=== PATIENT | female | born 1950 | race Caucasian/White ===

== ENCOUNTER 2017-03-03 15:49 | Emergency (ER) | payer BC, OTHER ==
[2017-03-03] MEDS ORDERED: Ondansetron INJ* 2 MG/ML VIAL IV ONE (17:55)
[2017-03-03] MEDS ORDERED: HYDROmorphone* 1 MG/ML 1 ML SYR IV ONE ×2 (17:55→21:38)
--- NOTE | 2017-03-03 19:12 | RAD ---
Indication: LEFT ankle deformity post fall. Comparison: None. Technique: Oblique AP and lateral lateral views LEFT ankle. Report: Talocrural dislocation with the talus displaced anterior and lateral relative to the tibial plafond. Fracture of the lateral malleolus at the level of the distal tibia fibula syndesmosis with apex medial angulation and impaction. Avulsion fracture at the medial malleolus. Talocrural joint effusion and severe soft tissue swelling about the visualized lower leg and ankle. IMPRESSION: Ankle fracture dislocation as described.
[2017-03-03] MEDS ORDERED: LORazepam INJ* 2 MG/ML 1 ML VIAL IV ONE (19:40)
[2017-03-03 22:16] VITALS: BP 107/59
--- NOTE | 2017-03-03 22:30 | RAD ---
Indication: Post reduction fracture dislocation. Comparison: Prereduction exam of the same date. Technique: AP and mortise views of the LEFT ankle. No lateral view obtained. Report: Improved alignment at the ankle mortise in the AP projection post reduction. Up to 1 cm lateral displacement of the medial malleolus fragment and the dome of the talus relative to the tibial plafond and. Similar lateral displacement at the oblique fracture at the distal metaphysis of the fibula terminating inferiorly at the level of the ankle mortise. Surrounding soft tissue swelling. IMPRESSION: Full assessment of talocrural joint alignment requires a lateral view. Zhu type B2 fracture pattern.
--- NOTE | 2017-03-03 22:45 | ED ---
Progress - Progress Note Progress Note: Pt w/ Lt ankle anterior dislocation w/ distal fibular fx and medial malleolar avulsion fx Edema and ecchymosis about the ankle joint Pre-reduction NV intact Reduced w/ dilaudid and ativan on board - pt tolerated well Post preduction NV intact Film shows improved positioning Posterior leg splint + stirrup splint applied Post splint NV intact Pt reports improvement of pain in splint Course/Dx - Diagnoses Provider Diagnoses: Avulsion fracture of medial malleolus of left tibia, Dislocation of left ankle joint, Closed left fibular fracture
[2017-03-03] MEDS ORDERED: HYDROcodone/ACETAMIN 5-325 MG* 1 TAB PO ONE (23:00)
--- NOTE | 2017-03-06 13:55 | ED ---
Anselmo Paz Benjamin, scribed for Deacon Ly MD on 03/03/17 at 1800 . Lower Extremity - HPI Summary HPI Summary: 67yo female presents with a left ankle injury from a mechanical fall around 1450 today. Pt twisted her left ankle upon falling. There is an obvious deformity on her left ankle. Pt has asthma, but no other medical problems. - History of Current Complaint Chief Complaint: EDExtremityLower Stated Complaint: FALL/ANKLE INJURY Time Seen by Provider: 03/03/17 17:09 Hx Obtained From: Patient, Family/Gis Application Developer Mechanism Of Injury: Fall From A Standing Position, Twisted Onset of Pain: Immediate, Post Accident Onset/Duration: Hours Severity Initially: Moderate Severity Currently: Moderate Pain Intensity: 6 Pain Scale Used: 0-10 Numeric Timing: Constant Location: Is Discrete @ - left ankle Character Of Pain: Throbbing Associated Signs And Symptoms: Positive: Negative Aggravating Factor(s): Standing, Ambulation, Movement, Weight Bearing Alleviating Factor(s): Elevation Able to Bear Weight: No - Allergies/Home Medications Allergies/Adverse Reactions: Allergies Allergy/AdvReac Type Severity Reaction Status Date / Time Penicillins Allergy Intermediate Rash Verified 11/22/13 18:59 PMH/Surg Hx/FS Hx/Imm Hx Endocrine/Hematology History: Denies: Hx Diabetes Cardiovascular History: Reports: Hx Hypercholesterolemia Denies: Hx Hypertension Respiratory History: Reports: Hx Asthma GI History: Reports: Other GI Disorders - Occasional acid reflux History: Denies: Hx Renal Disease Musculoskeletal History: Denies: Hx Rheumatoid Arthritis, Hx Osteoporosis - Cancer History Cancer Type, Location and Year: 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, 2x Hx Chemotherapy: No Hx Radiation Therapy: No - Surgical History Surgery Procedure, Year, and Place: Appendectomy 1975 Infectious Disease History: No Infectious Disease History: Denies: Traveled Outside the [place] in Last 30 Days - Family History Known Family History: Negative: Cardiac Disease, Hypertension - Social History Occupation: Employed Full-time Lives: With Family Alcohol Use: Weekly Substance Use Type: Reports: None Smoking Status (MU): Never Smoked Tobacco Review of Systems Constitutional: Negative Eyes: Negative ENT: Negative Cardiovascular: Negative Respiratory: Negative Gastrointestinal: Negative Genitourinary: Negative Positive: Arthralgia - left ankle pain Skin: Negative Neurological: Negative Psychological: Normal All Other Systems Reviewed And Are Negative: Yes Physical Exam Triage Information Reviewed: Yes Vital Signs On Initial Exam: Initial Vitals Temp Pulse Resp BP Pulse Ox 99 F 77 18 159/75 98 03/03/17 15:55 03/03/17 15:55 03/03/17 15:55 03/03/17 15:55 03/03/17 15:55 Vital Signs Reviewed: Yes Appearance: Positive: Well-Appearing, Well-Nourished, Pain Distress - mild Skin: Positive: Warm, Skin Color Reflects Adequate Perfusion, Dry Head/Face: Positive: Normal Head/Face Inspection Eyes: Positive: Normal ENT: Positive: Normal ENT inspection Neck: Positive: Supple, Nontender Respiratory/Lung Sounds: Positive: Clear to Auscultation, Breath Sounds Present Cardiovascular: Positive: RRR, Pulses are Symmetrical in both Upper and Lower Extremities Abdomen Description: Positive: Nontender, Soft Bowel Sounds: Positive: Present Musculoskeletal: Positive: Limited @ - left ankle, Pain @ - left ankle, Other - obvious deformity on left ankle, capillary refill 3 seconds. able to move toes. pulses intact. Neurological: Positive: Normal, Sensory/Motor Intact, Alert, Oriented to Person Place, Time, CN Intact II-III Psychiatric: Positive: Affect/Mood Appropriate - Iam Coma Scale Coma Scale Total: 15 Diagnostics - Vital Signs Vital Signs Temp Pulse Resp BP Pulse Ox 03/03/17 17:18 78 18 159/75 99 03/03/17 15:55 99 F 77 18 159/75 98 - Laboratory Lab Statement: Any lab studies that have been ordered have been reviewed, and results considered in the medical decision making process. - Radiology ankle xr Xray Interpretation: Positive (See Comments) - Report: Talocrural dislocation with the talus displaced anterior and lateral relative to the tibial plafond. Fracture of the lateral malleolus at the level of the distal tibia fibula syndesmosis with apex medial angulation and impaction. Avulsion fracture at the medial malleolus. Talocrural joint effusion and severe soft tissue swelling about the visualized lower leg and ankle. IMPRESSION: Ankle fracture dislocation as described. Radiology Interpretation Completed By: Radiologist ankle XR repeat Xray Interpretation: Positive (See Comments) - IMPRESSION: Full assessment of talocrural joint alignment requires a lateral view. Zhu type B2 fracture pattern. Radiology Interpretation Completed By: Radiologist Lower Extremity Course/Dx - Course Course Of Treatment: Ms. Sarmiento suffered a bimalleolar fracture dislocation of her left ankle and she was reduced after pain medication and anxiolytic medications were given by BEATRICE Long under my supervision. An acceptable reduction was obtained and she was splinted for F/U with Dr. Ruiz. - Diagnoses Provider Diagnoses: Avulsion fracture of medial malleolus of left tibia, Dislocation of left ankle joint, Closed left fibular fracture - Physician Notifications Discussed Care of Patient With: Dr. Ruiz Discharge - Discharge Plan Condition: Guarded Disposition: HOME Prescriptions: HYDROcodone/ACETAMIN 5-325 MG* [Lutz 5-325 TAB*] 1 tab PO Q6H PRN #20 tab MDD 4 PRN Reason: Pain Patient Education Materials: Ankle Fracture (ED) Referrals: Juany Ramirez MD [Primary Care Provider] - Mat Ruiz MD [Medical Doctor] - 2 Days The documentation as recorded by the Anselmo lemus Benjamin accurately reflects the service I personally performed and the decisions made by me, Deacon Ly MD.
== END 2017-03-03 23:01 | disposition home or self-care (01) ==
LOC: ED 15:49
DX: S82.52XA Displaced fracture of medial malleolus of left tibia, initial encounter for closed fracture (principal); S82.402A Unspecified fracture of shaft of left fibula, initial encounter for closed fracture; S93.05XA Dislocation of left ankle joint, initial encounter; W19.XXXA Unspecified fall, initial encounter; Y93.9 Activity, unspecified; Y92.9 Unspecified place or not applicable
CPT/HCPCS: 96374; 96375; 99282; J1170; J2060; J2405

== ENCOUNTER 2020-01-11 04:08 | Emergency (ER) | payer MEDICARE, OTHER ==
[2020-01-11] MEDS ORDERED: Albuterol 2.5 MG/3 ML NEB.SOL* (0.083%) INH ONE (07:07)
--- NOTE | 2020-01-11 07:07 | ED ---
Shortness of Breath - HPI Summary HPI Summary: Patient is a 70 y/o F presenting to the ED for a chief complaint of shortness of breath. Patient is present with her . On 01/05/20, patient began to have a fever, nonproductive cough, and diarrhea. At that time, she saw her PCP and had an influenza swab that was negative. She was diagnosed with a respiratory infection and prescribed a Zpac which she has since completed without relief of her symptoms. Patient was not started on steroids. After her symptoms persisted, she had a chest x-ray with negative findings. During the night of 01/09/20, she describes having a rasp so she decided to be assessed at [facility]. Patient has taken Tylenol Q6H and her rescues inhaler Q8H since the onset of her symptoms. Currently, she reports bilateral rib pain after coughing , none at the present time. Patient denies rhinorrhea or sore throat. PMHx is significant for asthma and GERD. PSHx is significant for appendectomy, ankle repair and left hand repair. Allergy to penicillin is noted. Patient denies tobacco use, but admits alcohol use. Allergies noted. Medications reviewed. - History of Current Complaint Chief Complaint: EDUpperRespComplaint Time Seen by Provider: 01/11/20 06:54 Hx Obtained From: Patient Onset/Duration: Sudden Onset, Still Present Timing: Constant Current Severity: Moderate Dyspnea At: Rest Aggravating Factors: Nothing Alleviating Factors: Bronchodilators - Inhaler Associated Signs & Symptoms: Cough (Nonproductive), Fever - In vitals, 98 F - Allergy/Home Medications Allergies/Adverse Reactions: Allergies Allergy/AdvReac Type Severity Reaction Status Date / Time Penicillins Allergy Intermediate Rash Verified 01/11/20 04:12 animal dander Allergy Unknown Verified 01/11/20 04:12 Reaction Details cleaning agents Allergy Unknown Uncoded 01/11/20 04:12 Reaction Details dust Allergy Unknown Uncoded 01/11/20 04:12 Reaction Details PMH/Surg Hx/FS Hx/Imm Hx Previously Healthy: Yes Endocrine/Hematology History: Denies: Hx Diabetes Cardiovascular History: Reports: Hx Hypercholesterolemia Denies: Hx Hypertension Respiratory History: Reports: Hx Asthma GI History: Reports: Hx Gastroesophageal Reflux Disease, Other GI Disorders - Occasional acid reflux History: Denies: Hx Renal Disease Musculoskeletal History: Denies: Hx Rheumatoid Arthritis, Hx Osteoporosis Sensory History: Denies: Hx Legally Blind, Hx Deafness Opthamlomology History: Denies: Hx Legally Blind EENT History: Denies: Hx Deafness - Cancer History Cancer Type, Location and Year: 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, 2x Hx Chemotherapy: No Hx Radiation Therapy: No - Surgical History Surgical History: Yes Surgery Procedure, Year, and Place: Appendectomy 1974, left hand, ankle repair Infectious Disease History: No Infectious Disease History: Denies: Traveled Outside the [place] in Last 30 Days - Family History Known Family History: Negative: Renal Disease - Social History Occupation: Retired Lives: With Family Alcohol Use: Weekly Hx Substance Use: No Substance Use Type: Reports: None Hx Tobacco Use: No Smoking Status (MU): Never Smoked Tobacco Review of Systems Positive: Fever - In vitals, 98 F Negative: Sore Throat, Nasal Discharge Positive: Shortness Of Breath, Cough - Nonproductive Positive: Diarrhea Positive: Myalgia - Bilateral rib pain, none at present time All Other Systems Reviewed And Are Negative: Yes Physical Exam - Summary Physical Exam Summary: Constitutional: Well-developed, Well-nourished, Alert. (-) Distressed Skin: Warm, Dry HENT: Normocephalic; Atraumatic Eyes: Conjunctiva normal Neck: Musculoskeletal ROM normal neck. (-) JVD, (-) Stridor, (-) Tracheal deviation Cardio: Rhythm regular, rate normal, Heart sounds normal; Intact distal pulses; Radial pulses are 2+ and symmetric. (-) Murmur Pulmonary/Chest wall: Effort normal. (-) Respiratory distress, (-) Rales. Expiratory wheezing in all lung [place], speaking in full sentences Abd: Soft, (-) tenderness, (-) Distension, (-) Guarding, (-) Rebound Musculoskeletal: (-) Edema Lymph: (-) Cervical adenopathy Neuro: Alert, Oriented x3 Psych: Mood and affect Normal Triage Information Reviewed: Yes Vital Signs On Initial Exam: Initial Vitals Temp Pulse Resp BP Pulse Ox 98 F 81 15 186/84 97 01/11/20 04:09 01/11/20 04:09 01/11/20 04:09 01/11/20 04:09 01/11/20 04:09 Vital Signs Reviewed: Yes Procedures - Sedation Patient Received Moderate/Deep Sedation with Procedure: No Diagnostics - Vital Signs Vital Signs Temp Pulse Resp BP Pulse Ox 01/11/20 04:09 98 F 81 15 186/84 97 - Laboratory Lab Statement: Any lab studies that have been ordered have been reviewed, and results considered in the medical decision making process. - EKG 07:18 Cardiac Rate: NL - 67 BPM EKG Rhythm: Sinus Rhythm ST Segment: Normal Ectopy: None Summary of EKG Findings: EKG at 07:18 shows normal sinus rhythm with 67 BPM, borderline ST depression in V4 and V5, no prior is available for comparison, no STEMI. Reviewed and interpreted by Dr. Burns. Re-Evaluation - Re-Evaluation First Eval Re-Evaluation Time: 07:58 Change: Improved Comment: At 07:58, patient is feeling better after receiving a breathing treatment, and is requesting something for anxiety. Course/Dx - Course Course Of Treatment: Patient is here with cough and wheezing. Patient has asthma and was recently diagnosed with a viral syndrome. Patient was on a Z- Ezekiel for that. Patient started getting worse on Friday morning so she went to her doctor yesterday where a chest x-ray was performed which showed no evidence of pneumonia. Patient is in no respiratory distress upon arrival is overall well-appearing. Patient has no chest pain outside of pain with cough. Patient was giving a breathing treatment with improvement in her symptoms. Patient likely is suffering from an asthma exacerbation secondary to her viral syndrome. Patient started on prednisone. Patient is also very anxious so she requested anxiety medicine and was started on Vistaril. Patient was told she was hypertensive and needed her blood pressure rechecked by her PCP - Diagnoses Provider Diagnoses: Asthma exacerbation, Cough Discharge ED - Sign-Out/Discharge Documenting (check all that apply): Patient Departure - Discharge - Discharge Plan Condition: Stable Disposition: HOME Prescriptions: hydrOXYzine pamoate [Vistaril] 25 mg PO Q6HR PRN #12 capsule PRN Reason: Anxiety predniSONE [Prednisone 20 MG TAB] 40 mg PO QAM #8 tablet Patient Education Materials: Asthma (ED) Referrals: Juany Ramirez MD [Primary Care Provider] - Additional Instructions: PLEASE RETURN TO EMERGENCY DEPARTMENT FOR WORSENING CHEST PAIN, WORSENING SHORTNESS OF BREATH, HIGH FEVER, OR ANY NEW OR WORSENING SYMPTOMS. Please follow up with your primary care physician. Please make all follow-ups in 1-3 days unless I advise you otherwise. Take your prednisone as prescribed and use your rescue inhaler as needed. - Billing Disposition and Condition Condition: STABLE Disposition: Home - Attestation Statements Document Initiated by Yuki: Yes Documenting Scribe: Deloris Mustafa Provider For Whom Yuki is Documenting (Include Credential): Yosi Burns MD Scribe Attestation: Deloris Paz, scribed for Yosi Burns MD on 01/11/20 at 0839. Scribe Documentation Reviewed: Yes Provider Attestation: The documentation as recorded by the Deloris lemus accurately reflects the service I personally performed and the decisions made by me, Yosi Burns MD Status of Scribe Document: Viewed
[2020-01-11] MEDS ORDERED: hydrOXYzine HCL TAB* 25 MG PO ONE (07:58)
[2020-01-11 08:03] VITALS: BP 157/92
== END 2020-01-11 08:21 | disposition home or self-care (01) ==
LOC: ED 04:08
DX: J45.901 Unspecified asthma with (acute) exacerbation (principal); B34.9 Viral infection, unspecified; E78.00 Pure hypercholesterolemia, unspecified; K21.9 Gastro-esophageal reflux disease without esophagitis; Z88.0 Allergy status to penicillin; R03.0 Elevated blood-pressure reading, without diagnosis of hypertension; R05 Cough
CPT/HCPCS: 93005; 99282; A9270-GY; J7512